=== PATIENT | male | born 1985 | race Caucasian/White ===

== ENCOUNTER 2021-02-01 16:22 | Emergency (ER) | payer SELFPAY ==
--- OUTSIDE RECORDS SUMMARY | 2021-02-01 16:26 | XMS REPORT | Continuity of Care Document ---
:1985 Author Organization [facility] t Address [address] [place] [address] Care Team Providers Name Role Phone Shai TOBAR Attending Clinician Unavailable Edwin Anton Attending Clinician Unavailable Edwin Anton Attending Clinician Unavailable JUANITA Attending Clinician Unavailable RAJI Attending Clinician Unavailable Edwin Anton Admitting Clinician Unavailable JUANITA Admitting Clinician Unavailable Problems This patient has no known problems. Allergies, Adverse Reactions, Alerts This patient has no known allergies or adverse reactions. Medications Ordered Filled Start Stop Current Ordering Indication Dosage Frequency Signature Comments Components Source Medication Medication Date Date Medication? Clinician (SIG) Name Name Amoxicillin Amoxicillin Yes 1tab BID C HI St 875 MG / 875 MG / [facility] - Clavulanate Clavulanate M emoria 125 MG Oral 125 MG Oral l Tablet Tablet (LUF/LI V/SA) Vital Signs Vital Name Observation Time Observation Value Comments Source Body Temperature 2017-01-16 00:14:[address] [facility] Respiratory Rate 2017-01-16 00:14:00 18 /min [facility] (LUF/ZOILA/SA) O2% BldC Oximetry 2017-01-16 00:14:00 97 % [facility] BP Systolic 2017-01-16 00:14:00 134 mm[Hg] [facility] (LUF/ZOILA/SA) BP Diastolic 2017-01-16 00:14:00 88 mm[Hg] [facility] (LUF/ZOILA/SA) Height 2017-01-16 00:14:[address] [facility] (LUF/ZOILA/SA) Weight Measured 2017-01-16 00:14:00 384.26 lbs AN ribeiro [facility] (LUF/ZOILA/SA) BMI (Body Mass Index) 2017-01-16 00:14:00 53.7 [facility] (LUF/ZOILA/SA) Procedures This patient has no known procedures. Encounters Start End Encounter Admission Attending Care Care Encounter Source Date/Time Date/Time Type Type Clinicians Facility Department ID 2020-05-16 2020-05-17 Emergency E AMADOU, [facility] [id number] [facility] 19:19:00 02:20:00 ELIZ smith [facility] 2019-12-01 2019-12-02 Emergency 1 Erickson Anton [facility] [id number] 21:47:00 01:13:00 Erickson Anton [facility] 2019-12-01 2019-12-01 Emergency [facility] [id number] 21:47:00 21:47:00 -[id number] [facility] 2017-01-16 2017-01-16 OTITIS KOSCIUK, [facility] [address] 00:03:00 00:42:00 [facility] [place] [address] ([address], V/SA) [place] [address] Results Test Description Test Time Test Comments Results Result Comments Source XR Chest 1 View 2019-12-01 Patient: Frontal 23:58:02 LUCIANA ARTEAGA Date/Time 0 23:30 CDTReason for ExamChest painReportLOCATION : [id number]: 34-year-old male presents with chest pain.COMMENT:The examination was obtained at the bedside at 10:29 p.m.The lungs are clear, and well-aerated. The cardiac silhouette, stuart, and mediastinum are unremarkable. The skeleton and soft tissues are unremarkable.Cardi ac monitoring leads are present.IMPRESSION :Unremarkable portable examination of the chest. Final Dictated by: MD Pablo, Chas RAMOSictated DT/TM: 12/01/2019 11:57 pmSigned by: MD Pablo, Chas LSigned (Electronic Signature): 12/01/2019 11:58 pm Comprehensive Metabolic Panel 2019-12-01 22:53:41 Test Item Value Reference Range Interpretation Comme nts Sodium Level (test code = Sodium Level) 141.0 mmol/L 136.0-145.0 Potassium Level (test code = Potassium Level) 4.00 mmol/L 3.50-5.1 0 Chloride Level (test code = Chloride Level) 107.0 mmol/L 98.0-107.0 CO2 (test code = CO2) 25 mmol/L 20-31 Anion Gap (test code = Anion Gap) 8.9 mmol/L 5.0-15.0 BUN (test code = BUN) 12 mg/dL 9-23 Creatinine Level (test code = Creatinine Level) 0.91 mg/dL 0.70-1 .30 BUN/Creat Ratio (test code = BUN/Creat Ratio) 13.2 ratio 10.0-20. 0 Glucose Level (test code = Glucose Level) 112 mg/dL 74-106 H Calcium Level (test code = Calcium Level) 8.9 mg/dL 8.3-10.6 Alk Phos (test code = Alk Phos) 83 U/L 46-116 Bilirubin Total (test code = Bilirubin Total) 0.6 mg/dL 0.2-1.1 Albumin Level (test code = Albumin Level) 4.3 g/dL 3.2-4.8 Protein Total (test code = Protein Total) 6.5 g/dL 5.7-8.2 ALT (test code = ALT) 62 U/L 10-49 H AST (test code = AST) 36 U/L <=34 H Globulin (test code = Globulin) 2.2 g/dL 2.3-3.5 L A/G Ratio (test code = A/G Ratio) 2.0 g/dL 0.8-2.0 Hemolysis (test code = Hemolysis) 0 g/dL 1-2 Icterus (test code = Icterus) 0 g/dL 1-2 Lipemia (test code = Lipemia) 0 g/dL 1-2 Creatine [id number] 22:53:41 Test Item Value Reference Range Interpretation Comments CK (test code = CK) 83 U/L 46-171 Comprehensive Metabolic [id number] 22:53:41 Test Item Value Reference Range Interpretation Comments Sodium Level (test 141.0 mmol/L 136.0-145.0 code = Sodium Level) Potassium Level 4.00 mmol/L 3.50-5.10 (test code = Potassium Level) Chloride Level (test 107.0 mmol/L 98.0-107.0 code = Chloride Level) CO2 (test code = 25 mmol/L 20-31 CO2) Anion Gap (test code 8.9 mmol/L 5.0-15.0 = Anion Gap) BUN (test code = 12 mg/dL 9-23 BUN) Creatinine Level 0.91 mg/dL 0.70-1.30 (test code = Creatinine Level) BUN/Creat Ratio 13.2 ratio 10.0-20.0 (test code = BUN/Creat Ratio) Glucose Level (test 112 mg/dL 74-106 H code = Glucose Level) Calcium Level (test 8.9 mg/dL 8.3-10.6 code = Calcium Level) Alk Phos (test code 83 U/L 46-116 = Alk Phos) Bilirubin Total 0.6 mg/dL 0.2-1.1 (test code = Bilirubin Total) Albumin Level (test 4.3 g/dL 3.2-4.8 code = Albumin Level) Protein Total (test 6.5 g/dL 5.7-8.2 code = Protein Total) ALT (test code = 62 U/L 10-49 H ALT) AST (test code = 36 U/L <=34 H AST) Globulin (test code 2.2 g/dL 2.3-3.5 L = Globulin) A/G Ratio (test code 2.0 g/dL 0.8-2.0 = A/G Ratio) eGFR AA (test code = >60 >=60 eGFR (e stimated eGFR AA) mL/min/1.73 m2 Glomerular Filtration Rate ) is an estimated va lue, calculated from the patient's serum creatinine usin g the MDRD equation. It is NOT the patient 's actual GFR. The eGFR provides a more clinically usef ul measure of kidn ey disease than se rum creatinine alone.This calculation giacomo es sex and race in to account, if the information is provided. If th e race is not provided, and t he patient is -Veronica n, multiply by 1.2 12. If sex is not provided, and t he patient is fema le, multiply by 0.7 42. Results for pat ients <18 years of ag e have not been validated by e MDRD study and should be interpreted wit h caution. eGFR R esult Interpretation: eGFR > or = 60 is in the Normal RangeeGF R < 60 may mean kid franchesca diseaseeGFR < 1 5 may mean kidney failure Rang es recommended by the National Kidney Foundation, http://nkdep.ni h.gov Hemolysis (test code 0 g/dL 1-2 = Hemolysis) Icterus (test code = 0 g/dL 1-2 Icterus) Lipemia (test code = 0 g/dL 1-2 Lipemia) Creatine Kinase MB [id number] 22:53:41 Test Item Value Reference Range Interpretation Comments CKMB (test code = CKMB) 1.19 ng/mL 0.00-5.00 CKMB % (test code = CKMB %) 1.4 % N Troponin [id number] 22:53:41 Test Item Value Reference Range Interpretation Comments Troponin-I (test 4 pg/mL <=45 The 99th pe rcentile URL for code = Troponin-I) the assay is <45 pg/ml. A rise and fall i n Troponin I with at least o ne value above the 99th percentile with clinical e vidence of myocardial isch emia would support a diagn osis of AMI. A delta of at l east 20% is recommended to assess acute changes in resu lts above the 99th percen tile in serial measurem ents. Serial cardiac troponi n measurements ar e recommended at 0, 3, 6 hours. Comprehensive Metabolic [id number] 22:53:41 Test Item Value Reference Range Interpretation Comments Sodium Level (test 141.0 mmol/L 136.0-145.0 code = Sodium Level) Potassium Level 4.00 mmol/L 3.50-5.10 (test code = Potassium Level) Chloride Level (test 107.0 mmol/L 98.0-107.0 code = Chloride Level) CO2 (test code = 25 mmol/L 20-31 CO2) Anion Gap (test code 8.9 mmol/L 5.0-15.0 = Anion Gap) BUN (test code = 12 mg/dL 9-23 BUN) Creatinine Level 0.91 mg/dL 0.70-1.30 (test code = Creatinine Level) BUN/Creat Ratio 13.2 ratio 10.0-20.0 (test code = BUN/Creat Ratio) Glucose Level (test 112 mg/dL 74-106 H code = Glucose Level) Calcium Level (test 8.9 mg/dL 8.3-10.6 code = Calcium Level) Alk Phos (test code 83 U/L 46-116 = Alk Phos) Bilirubin Total 0.6 mg/dL 0.2-1.1 (test code = Bilirubin Total) Albumin Level (test 4.3 g/dL 3.2-4.8 code = Albumin Level) Protein Total (test 6.5 g/dL 5.7-8.2 code = Protein Total) ALT (test code = 62 U/L 10-49 H ALT) AST (test code = 36 U/L <=34 H AST) Globulin (test code 2.2 g/dL 2.3-3.5 L = Globulin) A/G Ratio (test code 2.0 g/dL 0.8-2.0 = A/G Ratio) eGFR AA (test code = >60 >=60 eGFR (e stimated eGFR AA) mL/min/1.73 m2 Glomerular Filtration Rate ) is an estimated va lue, calculated from the patient's serum creatinine usin g the MDRD equation. It is NOT the patient 's actual GFR. The eGFR provides a more clinically usef ul measure of kidn ey disease than se rum creatinine alone.This calculation giacomo es sex and race in to account, if the information is provided. If th e race is not provided, and t he patient is -Veronica n, multiply by 1.2 12. If sex is not provided, and t he patient is fema le, multiply by 0.7 42. Results for pat ients <18 years of ag e have not been validated by th e MDRD study and should be interpreted wit h caution. eGFR R esult Interpretation: eGFR > or = 60 is in the Normal RangeeGF R < 60 may mean kid franchesca diseaseeGFR < 1 5 may mean kidney failure Rang es recommended by the National Kidney Foundation, http://nkdep.ni h.gov eGFR Non-AA (test >60.00 >=60.00 eGFR (nati mated code = eGFR Non-AA) mL/min/1.73 m2 Glomer ular Filtration Rate ) is an estimated va lue, calculated from the patient's serum creatinine usin g the MDRD equation. It is NOT the patient 's actual GFR. The eGFR provides a more clinically usef ul measure of kidn ey disease than se rum creatinine alone.This calculation giacomo es sex and race in to account, if the information is provided. If th e race is not provided, and t he patient is -Veronica n, multiply by 1.2 12. If sex is not provided, and t he patient is fema le, multiply by 0.7 42. Results for pat ients <18 years of ag e have not been validated by th e MDRD study and should be interpreted wit h caution. eGFR R esult Interpretation: eGFR > or = 60 is in the Normal RangeeGF R < 60 may mean kid franchesca diseaseeGFR < 1 5 may mean kidney failure Rang es recommended by the National Kidney Foundation, http://nkdep.ni h.gov Hemolysis (test code 0 g/dL 1-2 = Hemolysis) Icterus (test code = 0 g/dL 1-2 Icterus) Lipemia (test code = 0 g/dL 1-2 Lipemia) Complete Blood Count with [id number] 22:44:45 Test Item Value Reference Range Interpretation Comments WBC (test code = WBC) 11.4 x10 4.4-10.5 H RBC (test code = RBC) 4.55 x10 4.10-5.70 Hgb (test code = Hgb) 14.7 g/dL 13.4-17.4 Hct (test code = Hct) 41.4 % 38.7-52.0 MCV (test code = MCV) 91.00 fL 80.00-100.00 MCHC (test code = 35.50 g/dL 32.00-37.50 MCHC) RDW CV (test code = 13.0 % 11.5-14.5 RDW CV) MCH (test code = MCH) 32.3 pg 27.0-32.5 Platelets (test code = 309.0 x10 140.0-440.0 Platelets) MPV (test code = MPV) 10.7 fL N Slide Review (test Auto Auto Result cr eated by code = Slide Review) GL_SJM_ SLIDE_REV_AUTO nRBC (test code = 0 N nRBC) NRBC Abs (test code = 0.00 x10 N NRBC Abs) Automated [id number] 22:44:45 Test Item Value Reference Range Interpretation Comments Neutro Auto (test code = Neutro 57.7 % 36.0-70.0 Auto) Lymph Auto (test code = Lymph Auto) 28.9 % 12.0-44.0 Phelps Auto (test code = Phelps Auto) 9.3 % 0.0-11.0 Eos, Auto (test code = Eos, Auto) 3.1 % 0.0-7.0 Basophil Auto (test code = Basophil 0.7 % 0.0-2.0 Auto) Neutro Absolute (test code = Neutro 6.6 x10 1.6-7.4 Absolute) Lymph Absolute (test code = Lymph 3.31 x10 .50-4.60 Absolute) Phelps Absolute (test code = Phelps 1.06 x10 .00-1.20 Absolute) Eos Absolute (test code = Eos 0.35 x10 0.00-0.74 Absolute) Baso Absolute (test code = Baso 0.08 x10 0.00-0.21 Absolute) IG [id number] 22:44:45 Test Item Value Reference Range Interpretation Comments IG (test code = IG) 0.3 % 0.0-5.0 IG Abs (test code = IG Abs) 0 x10 N XR KNEE 1-2 [id number] 06:43:55Procedure: XR KNEE 1-2 VWSOrder Date: 11/22/2018 7:08 PMOrdering Provider: ALONSO TOBAR .Clinical Indication: [id number]: Pain in left kneeComparison: NoneFindings:No fracture, focal osseous destruction, or malalignment. Joint spaces arepreserved. Soft tissues are unremarkable.IMPRESSION:No acute osseous abnormality.This final report was electronically signed by Dr Blayne Ko MD 11/23/20186:37 AMDictated By: SHERRI KOKDate: 11/23/2018 06:37
[2021-02-01 18:08] LABS: Absolute Lymphocytes (CBC) 2.4 K/uL (0.7-4.9); Basophils % 0.4 % (0-1.3); Hematocrit 47.6 % (39.6-49.0); Lymphocytes % 23.4 % (15.3-44.8); RBC Red Blood Cell Count 5.26 M/uL (4.33-5.43)
[2021-02-01 18:30] LABS: Albumin 3.9 g/dL (3.4-5.0); Bilirubin Direct 0.2 mg/dL (0-0.2); Bilirubin Total 0.6 mg/dL (0.2-1.0); Potassium 3.8 mmol/L (3.5-5.1); Protein, Total 8.1 g/dL (6.4-8.2)
[2021-02-01] MEDS ORDERED: FAMOTIDINE 20 MG/2 ML VIAL IV ONE (19:12)
[2021-02-01] MEDS ORDERED: MORPHINE 2 MG/ML SYR ONE ×2 (19:12→22:20)
[2021-02-01] MEDS ORDERED: ONDANSETRON 4 MG/2 ML VIAL ONE (19:12)
[2021-02-01] MEDS ORDERED: NA CHLORIDE 0.9% 1,000 ML ONE (19:13)
--- NOTE | 2021-02-01 22:03 | RAD REPORT ---
EXAM DESCRIPTION: CT - Abdomen Pelvis Wo Contrast - 02/01/2021 9:38 pm CLINICAL HISTORY: ABD PAIN COMPARISON: <Comparisons> TECHNIQUE: Axial [address] imaging of the abdomen and pelvis was performed without IV contrast. No IV contrast was given because of allergy, abnormal renal function, patient refusal or physician re quest. No oral contrast administered. All CT scans are performed using dose optimization technique as appropriate and may include automated exposure control or mA/KV adjustment according to patient size. FINDINGS: No suspicious findings in the lung bases. The liver, spleen and pancreas show no suspicious findings on non-contrast imaging. Liver attenuation is borderline to minimally fatty infiltrated. Gallbladder and biliary tree are also without suspicio us finding. Gallstones can be occult on CT imaging. No hydronephrosis or suspicious renal mass. No significant adrenal finding. Isodense renal masses an d pyelonephritis cannot be excluded in the absence of IV contrast. Urinary bladder is fully contracte d limiting assessment. No dilated bowel loops or bowel wall thickening. Appendectomy clips seen at the tip cecum. No free ai r, free fluid or inflammatory stranding. No hernia, mass or bulky lymphadenopathy. No suspicious bony findings. IMPRESSION: Non-contrast enhanced CT abdomen and pelvis imaging show no acute or emergent finding. Full assessment is limited is the absence of IV contrast.
[2021-02-01 22:31] LABS: Urine Blood Negative (Negative); Urine Glucose Negative (Negative); Urine Protein 2+ (Negative); Urine Specific Gravity >=1.030 (1.005-1.030); Urine pH 5.5 (5.0-7.0)
--- NOTE | 2021-02-01 23:18 | EDPHYS ---
Physician Documentation [facility] Name: Eliot Avendaño Age: 35 yrs Sex: Male : 1985 Arrival Date: 02/01/2021 Time: 16:34 Bed 8 Private MD: ED Physician Richa Kunz HPI: 02/01 18:00 This 35 yrs old Male presents to ER via Ambulatory with complaints of Nausea, Diarrhea, cp Vomiting. 18:00 The patient presents to the emergency department with vomiting, that is intermittent, cp described as bilious, diarrhea, that is continuous, abdominal pain, of the mid abdomen, described as achy. 18:00 Onset: The symptoms/episode began/occurred 1 week(s) ago. Possible causes: bad food cp exposure. 18:00 Associated signs and symptoms: Pertinent positives: abdominal pain, diarrhea, vomiting, cp Pertinent negatives: constipation, dysuria, fever. Severity of symptoms: in the emergency department the symptoms are unchanged. Historical: - Allergies: 17:16 iodine-shrimp; iw - Home Meds: 17:16 None [Active]; iw - PMHx: 17:16 None; iw - PSHx: 17:16 Appendectomy; ankle; knee; bladder; iw - Immunization history:: Client reports having NOT received the Covid vaccine. - Social history:: Smoking status: . ROS: 18:05 Constitutional: Negative for body aches, chills, fever, poor PO intake. cp 18:05 Eyes: Negative for injury, pain, redness, and discharge. cp 18:05 ENT: Negative for ear pain, sore throat, difficulty swallowing, difficulty handling secretions. 18:05 Cardiovascular: Negative for chest pain, edema, palpitations. 18:05 Respiratory: Negative for cough, shortness of breath, wheezing. 18:05 Abdomen/GI: Positive for abdominal pain, nausea, vomiting, and diarrhea, Negative for constipation, hematemesis, black/tarry stool. 18:05 Back: Negative for radiated pain. 18:05 : Negative for urinary symptoms, testicular pain 18:05 Neuro: Negative for altered mental status, headache, weakness. 18:05 All other systems are negative. Exam: 18:10 Constitutional: The patient appears in no acute distress, alert, awake, non-toxic, well cp developed, well nourished, obese. 18:10 Head/Face: Normocephalic, atraumatic. cp 18:10 Eyes: Periorbital structures: appear normal, Conjunctiva: normal, no exudate, no injection, Sclera: no appreciated abnormality, Lids and lashes: appear normal, bilaterally. 18:10 ENT: External ear(s): are unremarkable, Nose: is normal, Mouth: Lips: moist, Oral mucosa: moist, Posterior pharynx: Airway: no evidence of obstruction, patent. 18:10 Chest/axilla: Inspection: normal, Palpation: is normal, no crepitus, no tenderness. 18:10 Cardiovascular: Rate: normal, Rhythm: regular. 18:10 Respiratory: the patient does not display signs of respiratory distress, Respirations: normal, no use of accessory muscles, no retractions, labored breathing, is not present, Breath sounds: are clear throughout, no decreased breath sounds. 18:10 Abdomen/GI: Inspection: obese Bowel sounds: active, all quadrants, Palpation: soft, in all quadrants, mild abdominal tenderness, in all quadrants, rebound tenderness, is not appreciated, involuntary guarding, is not appreciated. 18:10 Back: pain, is absent, ROM is normal. 18:10 Neuro: Orientation: to person, place \T\ time. Mentation: is normal, Motor: moves all fours, strength is normal, Sensation: is normal. Vital Signs: 17:17 BP 133 / 97; Pulse 79; Resp 16; Temp 98.2; Pulse Ox 97% on R/A; Weight 170.1 kg; Height iw 5 ft. 11 in. (180.34 cm); Pain 9/10; 19:31 BP 132 / 79; Pulse 72; Resp 20; Pulse Ox 98% on R/A; tw5 20:16 BP 143 / 86; Pulse 66; Resp 18; Pulse Ox 98% on R/A; Pain 6/10; tw5 20:18 Pain 6/10; tw5 22:22 BP 140 / 77; Pulse 78; Resp 18; Pulse Ox 100% on R/A; Pain 10/10; tw5 23:02 Pain 6/10; tw5 23:03 BP 129 / 75; tw5 12/13 00:11 BP 140 / 125; Pulse 80; Resp 18; Pulse Ox 100% on R/A; tw5 12/12 17:17 Body Mass Index 52.30 (170.10 kg, 180.34 cm) iw MDM: 02/01 18:48 Patient medically screened. 19:00 Differential diagnosis: gastritis, cholecystitis, appendicitis, diverticulitis, viral cp gastroenteritis, gastroenteritis. 23:15 Data reviewed: vital signs, nurses notes, lab test result(s), radiologic studies, CT cp scan. 23:15 Counseling: I had a detailed discussion with the patient and/or guardian regarding: the cp historical points, exam findings, and any diagnostic results supporting the discharge/admit diagnosis, lab results, radiology results, the need for outpatient follow up, a reading specialist, to return to the emergency department if symptoms worsen or persist or if there are any questions or concerns that arise at home. Response to treatment: the patient's symptoms have mildly improved after treatment, and as a result, I will discharge patient. Special discussion: Based on the patient's Hx, exam, and Dx evaluation, there is no indication for emergent surgery or inpatient Tx. It is understood by the patient/guardian that if the Sx's persist or worsen they need to return immediately for re-evaluation. 02/01 17:07 Order name: Basic Metabolic Panel; Complete Time: 18:55 02/01 20:37 Interpretation: Normal except: CL 110; CO2 19; GLUC 111; GFR 86. 02/01 17:07 Order name: CBC with Diff; Complete Time: 18:55 02/01 20:37 Interpretation: Normal except: MN% 12.4. 02/01 17:07 Order name: Hepatic Function; Complete Time: 18:55 02/01 20:37 Interpretation: Normal except: AST 38; GLOB 4.2; A/G 0.9. 02/01 17:07 Order name: Lipase; Complete Time: 18:55 02/01 18:59 Order name: Rotavirus Antigen 02/01 18:59 Order name: Stool Culture 02/01 18:59 Order name: CDIFF 02/01 19:00 Order name: Ova and Parasites [facility] 02/01 21:15 Order name: Abdomen ; Complete Time: 22:34 [facility] 02/01 22:31 Order name: Urine Dipstick-Ancillary EDMD 02/01 17:07 Order name: IV Saline Lock; Complete Time: 17:44 02/01 17:07 Order name: Labs collected and sent; Complete Time: 17:44 iw 02/01 18:59 Order name: Urine Dipstick-Ancillary (obtain specimen); Complete Time: 22:34 cp 02/01 22:34 Order name: PO challenge; Complete Time: 23:02 cp Administered Medications: 19:35 Drug: NS 0.9% 1000 ml Route: IV; Rate: 1 bolus; Site: right hand; tw5 19:36 Drug: Pepcid (famotidine) 20 mg Route: IVP; Site: right wrist; tw5 20:18 Follow up: Response: No adverse reaction tw5 19:37 Drug: Zofran (Ondansetron) 4 mg Route: IVP; Site: right wrist; tw5 20:18 Follow up: Response: No adverse reaction tw5 19:38 Drug: morphine 2 mg Route: IVP; Site: right wrist; tw5 20:18 Follow up: Pain 6/10 Adult; Response: No adverse reaction; Pain is unchanged, physician tw5 notified; RASS: Alert and Calm (0) 22:25 Drug: morphine 2 mg Route: IVP; Site: right wrist; tw5 23:02 Follow up: Pain 6/10 Adult; Response: No adverse reaction; RASS: Alert and Calm (0) tw5 02/02 00:11 Drug: Cipro (ciprofloxacin) 500 mg Route: PO; tw5 Disposition Summary: 02/01/21 23:17 Discharge Ordered Location: Home cp Problem: new cp Symptoms: have improved cp Condition: Stable cp Diagnosis - Diarrhea, unspecified cp - Nausea with vomiting, unspecified cp Followup: cp - With: Lamont Aleman MD - When: 1 - 2 days - Reason: Recheck today's complaints Discharge Instructions: - Discharge Summary Sheet cp - Food Choices to Help Relieve Diarrhea, Adult cp - Diarrhea, Adult cp - [place] Diet cp - Nausea and Vomiting, Adult cp Forms: - Medication Reconciliation Form cp - Thank You Letter cp - Antibiotic Education cp - Prescription Opioid Use cp Prescriptions: - Zofran 4 mg Oral Tablet - take 1 tablet by ORAL route every 12 hours As needed; 20 tablet; Refills: 0, cp Product Selection Permitted - Cipro 500 mg Oral Tablet - take 1 tablet by ORAL route every 12 hours for 7 days; 14 tablet; Refills: 0, cp Product Selection Permitted - dicyclomine 20 mg Oral Tablet - take 1 tablet by ORAL route 4 times per day; 30 tablet; Refills: 0, Product cp Selection Permitted Signatures: Dispatcher [employer] Sandhya Aguirre RN RN iw Nicolas Skinner PA PA cp Wood, Tiffany tw5 Corrections: (The following items were deleted from the chart) 02/01 19:08 19:00 Ova and Parasites+MR.LAB.BRZ ordered. EDMS EDMS 21:15 18:57 Abdomen Pelvis W Con+CT.RAD.BRZ ordered. EDMS EDMS
--- NOTE | 2021-02-01 23:18 | ER ---
Nurse's Notes [facility] Name: Eliot Avendaño Age: 35 yrs Sex: Male : 1985 Arrival Date: 02/01/2021 Time: 16:34 Bed 8 Private MD: Diagnosis: Diarrhea, unspecified;Nausea with vomiting, unspecified Presentation: 02/01 17:07 Chief complaint: Patient states: abd pain, n/v/d X 1 week, has been having diarrhea iw every 20 minutes today, thought he had food poisoning but symptoms have persisted for 1 week now. Coronavirus screen: Client presents with at least one sign or symptom that may indicate coronavirus-19. Ebola Screen: Patient negative for fever greater than or equal to 101.5 degrees Fahrenheit, and additional compatible Ebola Virus Disease symptoms Patient denies exposure to infectious person. Patient denies travel to an Ebola-affected area in the 21 days before illness onset. No symptoms or risks identified at this time. Initial Sepsis Screen: Does the patient meet any 2 criteria? No. Patient's initial sepsis screen is negative. Does the patient have a suspected source of infection? No. Patient's initial sepsis screen is negative. Risk Assessment: Do you want to hurt yourself or someone else? Patient reports no desire to harm self or others. Onset of symptoms was January 25, 2021. 17:07 Method Of Arrival: Ambulatory iw 17:07 Acuity: CAIO 3 iw Historical: - Allergies: 17:16 iodine-shrimp; iw - Home Meds: 17:16 None [Active]; iw - PMHx: 17:16 None; iw - PSHx: 17:16 Appendectomy; ankle; knee; bladder; iw - Immunization history:: Client reports having NOT received the Covid vaccine. - Social history:: Smoking status: . Screenin:31 Abuse screen: Denies threats or abuse. Denies injuries from another. Nutritional tw5 screening: No deficits noted. Nutritional screening: Has had N/V for 3 or more days. Tuberculosis screening: Never had TB. Fall Risk No fall in past 12 months (0 pts). IV access (20 points). Gait- Weak (10 pts.). Assessment: 19:31 General: Appears obese, Behavior is calm, cooperative, appropriate for age. Pain: tw5 Complains of pain in right lower quadrant and left lower quadrant Pain currently is 6 out of 10 on a pain scale. at worst was 10 out of 10 on a pain scale. Quality of pain is described as crampy, Pain began been occurring for the past week. GI: Abdomen is obese, Stools are reported to be diarrhea. Last BM at 19:32. Bowel sounds present X 4 quads. Reports lower abdominal pain, upper abdominal pain, diarrhea, nausea, vomiting. 20:16 General: Reports " I am feeling really dizzy". tw5 22:22 General: Reports " I am hungry as hell, nauseous, dizzy, hurting.". tw5 23:03 GI: Stools are reported to be diarrhea. Last BM at 23:03. Reports diarrhea. tw5 Vital Signs: 17:17 BP 133 / 97; Pulse 79; Resp 16; Temp 98.2; Pulse Ox 97% on R/A; Weight 170.1 kg; Height iw 5 ft. 11 in. (180.34 cm); Pain 9/10; 19:31 BP 132 / 79; Pulse 72; Resp 20; Pulse Ox 98% on R/A; tw5 20:16 BP 143 / 86; Pulse 66; Resp 18; Pulse Ox 98% on R/A; Pain 6/10; tw5 20:18 Pain 6/10; tw5 22:22 BP 140 / 77; Pulse 78; Resp 18; Pulse Ox 100% on R/A; Pain 10/10; tw5 23:02 Pain 6/10; tw5 23:03 BP 129 / 75; tw5 12/13 00:11 BP 140 / 125; Pulse 80; Resp 18; Pulse Ox 100% on R/A; tw5 12/12 17:17 Body Mass Index 52.30 (170.10 kg, 180.34 cm) iw ED Course: 1212 16:34 Patient arrived in ED. am2 17:08 Triage completed. iw 17:16 Arm band placed on. iw 17:23 Inserted saline lock: 20 gauge in right wrist, using aseptic technique. Blood collected.iw 18:47 Nicolas Skinner PA is PHCP. cp 18:47 Richa Kunz MD is Attending Physician. cp 19:07 Leida Rowe is Primary Nurse. tw5 19:31 Patient has correct armband on for positive identification. Placed in gown. Bed in low tw5 position. Call light in reach. Side rails up X 1. Pulse ox on. NIBP on. Door closed. Noise minimized. Moved to private room. Warm blanket given. Verbal reassurance given. 19:31 stool sample. tw5 19:38 Rotavirus Antigen Sent. tw5 19:38 Stool Culture Sent. tw5 19:38 CDIFF Sent. tw5 19:38 Ova and Parasites Sent. tw5 20:18 CDIFF Sent. tw5 20:18 Ova and Parasites Sent. tw5 20:18 Rotavirus Antigen Sent. tw5 20:18 Stool Culture Sent. tw5 21:38 Abdomen In Process Unspecified. EDMS 23:17 Lamont Aleman MD is Referral Physician. cp 23:58 Urine Dipstick-Ancillary Sent. tw5 02/02 00:11 No provider procedures requiring assistance completed. IV discontinued, intact, tw5 bleeding controlled, No redness/swelling at site. Pressure dressing applied. Administered Medications: 02/01 19:35 Drug: NS 0.9% 1000 ml Route: IV; Rate: 1 bolus; Site: right hand; tw5 19:36 Drug: Pepcid (famotidine) 20 mg Route: IVP; Site: right wrist; tw5 20:18 Follow up: Response: No adverse reaction tw5 19:37 Drug: Zofran (Ondansetron) 4 mg Route: IVP; Site: right wrist; tw5 20:18 Follow up: Response: No adverse reaction tw5 19:38 Drug: morphine 2 mg Route: IVP; Site: right wrist; tw5 20:18 Follow up: Pain 6/10 Adult; Response: No adverse reaction; Pain is unchanged, physician tw5 notified; RASS: Alert and Calm (0) 22:25 Drug: morphine 2 mg Route: IVP; Site: right wrist; tw5 23:02 Follow up: Pain 6/10 Adult; Response: No adverse reaction; RASS: Alert and Calm (0) tw5 02/02 00:11 Drug: Cipro (ciprofloxacin) 500 mg Route: PO; tw5 Outcome: 02/01 23:17 Discharge ordered by . scottie 02/02 00:11 Patient left the ED. tw Signatures: Dispatcher [employer] EDMS Sandhya Alonzo RN RN iw Page, NicolasPAYTON frank cp, Amanda am2 Leida Rowe tw5
[2021-02-01] MEDS ORDERED: CIPROFLOXACIN HCL 500 MG TAB ONE (23:59)
[2021-02-02 00:18] VITALS: TEMP 98.2
[2021-02-02 00:22] VITALS: O2SAT 100
[2021-02-02 00:25] VITALS: BP 140/125
[2021-02-03 12:35] LABS: C.diff Antigen/Toxin Ag neg : Tox neg (NEG : NEG)
== END 2021-02-02 00:11 | disposition home or self-care (01) ==
LOC: ER 16:22
DX: R19.7 Diarrhea, unspecified (principal); Z91.013 Allergy to seafood; Z91.048 Other nonmedicinal substance allergy status
CPT/HCPCS: 36415; 74176; 80048; 80076; 81003; 83690; 85025; 87045; 87046; 87177; 87209; 87324; 87425; 87449; 96374; 96375; 99284; J2270; J2405; J7030

== ENCOUNTER 2022-05-11 09:45 | Emergency (ER) | payer BC ==
--- OUTSIDE RECORDS SUMMARY | 2022-05-11 09:51 | XMS REPORT | Continuity of Care Document ---
:1985 Author Organization [facility] t Address [address] [place] [address] Care Team Providers Name Role Phone ELIZ TOBAR Attending Clinician Unavailable Erickson Anton Attending Clinician Unavailable Erickson Anton Attending Clinician Unavailable BRENDON GRANT Attending Clinician Unavailable RITIKA ALEGRIA Attending Clinician Unavailable Erickson Anton Admitting Clinician Unavailable BRENDON GRANT Admitting Clinician Unavailable Problems This patient has no known problems. Allergies, Adverse Reactions, Alerts Allergy Allergy Status Severity Reaction(s) Onset Inactive Treating Comm ents Source Name Type Date Date Clinician No Known DA Active Unknown 2016-[address] [facility] 03-18 [facility]: Mem[facility] 00 l (LUF/LI V/SA) iodine Drug Active [facility] iodine Drug Active [facility] iodine Drug Active [facility] iodine Drug Active [facility] Medications Ordered Filled Start Stop Current Ordering Indication Dosage Frequency Signature Comments Components Source Medication Medication Date Date Medication? Clinician (SIG) Name Name Amoxicillin Amoxicillin Yes 1tab BID C [facility] 875 MG / 875 MG / [facility] Clavulanate Clavulanate M emoria 125 MG Oral 125 MG Oral l Tablet Tablet (LUF/LI V/SA) Vital Signs Vital Name Observation Time Observation Value Comments Source Height/Length 2021-03-10 12:49:24 165 cm Measured Height/Length 2021-03-10 12:49:20 165 cm Measured Height/Length 2021-03-10 12:49:17 165 cm Measured Height/Length 2021-03-10 12:49:16 165 cm Measured Height/Length 2019-12-01 21:57:43 Measured Weight 2018-11-22 18:43:00 145 KG Body Temperature 2017-01-16 00:14:00 97.2 F [facility] (LUF/ZOILA/SA) Respiratory Rate 2017-01-16 00:14:00 18 /min [facility] (LUF/ZOILA/SA) O2% BldC Oximetry 2017-01-16 00:14:00 97 % [facility] (LUF/ZOILA/SA) BP Systolic 2017-01-16 00:14:00 134 mm[Hg] [facility] (LUF/ZOILA/SA) BP Diastolic 2017-01-16 00:14:00 88 mm[Hg] [facility] (LUF/ZOILA/SA) Height 2017-01-16 00:14:00 71 in [facility] (LUF/ZOILA/SA) Weight Measured 2017-01-16 00:14:00 384.26 lbs [facility] (LUF/ZOILA/SA) BMI (Body Mass Index) 2017-01-16 00:14:00 53.7 [facility] (LUF/ZOLIA/SA) Procedures This patient has no known procedures. Encounters Start End Encounter Admission Attending Care Care Encounter Source Date/Time Date/Time Type Type Clinicians Facility Department ID 2020-05-16 2020-05-17 Emergency E AMADOU, [id number] 19:19:00 02:20:[address] [facility] 2019-12-01 2019-12-02 Emergency 1 Erickson Anton [facility] [place] [id number] 21:47:00 01:13:00 Erickson Anton [facility] 2019-12-01 2019-12-01 Emergency [facility] [id number] 21:47:00 21:47:00 -[id number] Roberto [facility] 2017-01-16 2017-01-16 TRANG ALEGRIA [facility] [id number] 00:03:00 00:42:00 MEDIA RITIKA BOISE Adilia UNSPECIFKaren MARINELLI D RIGHT [address] (LUF/[address], V/SA) [place] [id number] Results Test Description Test Time Test Comments Results Result Comments Source XR Chest 1 View 2019-12-01 Patient: Jack ARTEAGA 23:58:02 LUCIANA MCNEIL Date/Time 0 23:30 CDTReason for ExamChest painReportLOCATION : [id number]: 34-year-old male presents with chest pain.COMMENT:The examination was obtained at the bedside at 10:29 p.m.The lungs are clear, and well-aerated. The cardiac silhouette, stuart, and mediastinum are unremarkable. The skeleton and soft tissues are unremarkable.Cardi ac monitoring leads are present.IMPRESSION :Unremarkable portable examination of the chest. Final Dictated by: MD Shah Robert LDictated DT/TM: 12/01/2019 11:57 pmSigned by: MD Shah Robert LSigned (Electronic Signature): 12/01/2019 11:58 pm Comprehensive [...] code = Lipemia) 0 g/dL 1-2 Creatine [id number] 22:53:41 Test Item Value Reference Range Interpretation Comments CK (test code = CK) 83 U/L 46-171 Comprehensive Metabolic [id number] 22:53:41 Test Item Value Reference Range Interpretation [...] 0 g/dL 1-2 Lipemia) Creatine Kinase MB [id number] 22:53:41 Test Item Value Reference Range Interpretation Comments CKMB (test code = CKMB) 1.19 ng/mL 0.00-5.00 CKMB % (test code = CKMB %) 1.4 % N Troponin [id number] 22:53:41 Test Item Value Reference Range Interpretation [...] at 0, 3, 6 hours. Comprehensive Metabolic [id number] 22:53:41 Test Item Value Reference Range Interpretation [...] ag e have not been validated by [facility] MDRD study and should be interpreted wit [...] ag e have not been validated by [facility] MDRD study and should be interpreted wit [...] g/dL 1-2 Lipemia) Complete Blood Count with [id number] 22:44:45 Test Item Value Reference Range Interpretation [...] = 0.00 x10 N NRBC Abs) Automated [id number] 22:44:45 Test Item Value Reference Range Interpretation Comments Neutro Auto (test code = Neutro 57.7 % 36.0-70.0 Auto) Lymph Auto (test code = Lymph Auto) 28.9 % 12.0-44.0 [place] Auto (test code = [place] Auto) 9.3 % 0.0-11.0 Eos, Auto (test code = Eos, Auto) 3.1 % 0.0-7.0 Basophil Auto (test code = Basophil 0.7 % 0.0-2.0 Auto) Neutro Absolute (test code = Neutro 6.6 x10 1.6-7.4 Absolute) Lymph Absolute (test code = Lymph 3.31 x10 .50-4.60 Absolute) [place] Absolute (test code = [place] 1.06 x10 .00-1.20 Absolute) Eos Absolute (test code = Eos 0.35 x10 0.00-0.74 Absolute) Baso Absolute (test code = Baso 0.08 x10 0.00-0.21 Absolute) IG [id number] 22:44:45 Test Item Value Reference Range Interpretation Comments IG (test code = IG) 0.3 % 0.0-5.0 IG Abs (test code = IG Abs) 0 x10 N XR KNEE 1-2 [id number] 06:43:55Procedure: XR KNEE 1-2 VWSOrder Date: 11/22/2018 7:08 PMOrdering Provider: ALONSO TOBAR .Clinical Indication: [id number]: Pain in left kneeComparison: NoneFindings:No fracture, focal osseous destruction, or malalignment. Joint spaces arepreserved. Soft tissues are unremarkable.IMPRESSION:No acute osseous abnormality.This final report was electronically signed by Dr Blayne Ko MD 11/23/20186:37 AMDictated By: SHERRI KOKDate: 11/23/2018 06:37[facility]
[2022-05-11] MEDS ORDERED: ONDANSETRON 4 MG (ODT) TAB ONE (11:09)
[2022-05-11 11:14] LABS: Absolute Lymphocytes (CBC) 1.6 K/uL (0.7-4.9); Hematocrit 45.2 % (39.6-49.0); Lymphocytes % 12.1 % (15.3-44.8); MCV 91.2 fL (80-100); MPV 8.8 fL (7.6-11.3); RBC Red Blood Cell Count 4.96 M/uL (4.33-5.43)
--- NOTE | 2022-05-11 11:22 | RAD REPORT ---
EXAM DESCRIPTION: US - Abdomen Exam Limited - 05/11/2022 10:55 am CLINICAL HISTORY: ABD PAIN COMPARISON: Abdomen Pelvis Wo Contrast dated 02/01/2021 TECHNIQUE: Sonographic grayscale and color flow images of the right upper quadrant were obtained. FINDINGS: The gallbladder demonstrates layering small echogenic foci near the neck, suggestive of sm all gallstones. No pericholecystic fluid or gallbladder wall thickening. The common bile duct is norm al measuring 6 mm. The liver demonstrates no findings of intrahepatic biliary dilatation. IMPRESSION: Small layering gallstones near the neck. No other acute findings.
--- NOTE | 2022-05-11 11:25 | RAD REPORT ---
EXAM DESCRIPTION: [facility] Pa And Lat (2 Views)05/11/2022 10:54 am CLINICAL HISTORY: pain on inspiration COMPARISON: CHEST PA AND LAT 2 VIEW dated 05/10/2011 TECHNIQUE: PA and lateral views of the chest. FINDINGS: The lungs are clear. No pneumothorax or effusion. The cardiomediastinal contours are unrem arkable. IMPRESSION: No acute cardiopulmonary process.
[2022-05-11 13:00] LABS: Bilirubin Total 1.8 mg/dL (0.2-1.0); Potassium 4.4 mEq/L (3.5-5.1)
[2022-05-11 13:01] LABS: Albumin 3.7 g/dL (3.4-5.0); Protein, Total 7.3 g/dL (6.4-8.2)
--- NOTE | 2022-05-11 13:36 | ER ---
Nurse's Notes [facility] Name: Eliot Avendaño Age: 37 yrs Sex: Male : 1985 Arrival Date: 05/11/2022 Time: 09:51 Bed 25 Private MD: Diagnosis: Biliary acute pancreatitis;Other cholelithiasis without obstruction Presentation: 05/11 10:21 Chief complaint: Patient states: Epigastric pain that radiates to the back with N/V vg1 that began last night, stated also pain with deep inhalation. Denies diarrhea. Coronavirus screen: Vaccine status: Patient reports being unvaccinated. Client denies travel out of the [place] in the last 14 days. Ebola Screen: Patient negative for fever greater than or equal to 101.5 degrees Fahrenheit, and additional compatible Ebola Virus Disease symptoms Patient denies exposure to infectious person. Patient denies travel to an Ebola-affected area in the 21 days before illness onset. Initial Sepsis Screen: Does the patient meet any 2 criteria? No. Patient's initial sepsis screen is negative. Does the patient have a suspected source of infection? No. Patient's initial sepsis screen is negative. Risk Assessment: Do you want to hurt yourself or someone else? Patient reports no desire to harm self or others. Onset of symptoms was May 10, 2022. 10:21 Method Of Arrival: Ambulatory vg1 10:21 Acuity: CAIO 3 vg1 Triage Assessment: 10:25 Pain: Complains of pain in epigastric area Pain radiates to back Pain currently is 8 vg1 out of 10 on a pain scale. Pain began 1 day ago. Neuro: Level of Consciousness is awake, alert, obeys commands, Oriented to person, place, time, situation. Respiratory: Reports pain with deep inhalation Airway is patent Respiratory effort is even, unlabored. GI: Abdomen is round non-distended, obese, Reports nausea, vomiting, Patient currently denies diarrhea. 17:13 General: Appears in no apparent distress. Behavior is calm, cooperative, appropriate tw5 for age. Historical: - Allergies: 10:25 iodine-shrimp; vg1 - Home Meds: 10:25 Lipo-C [Active]; semaglutide (weight loss) subcutaneous [Active]; vg1 - PMHx: 10:25 Asthma; vg1 - PSHx: 10:25 Ankle; Appendectomy; Bladder; knee; vg1 - Immunization history:: Client reports having NOT received the Covid vaccine. - Social history:: Smoking status: Patient denies any tobacco usage or history of. Screenin:23 [facility] ED Fall Risk Assessment (Adult) History of falling in the last 3 months, tw5 including since admission No falls in past 3 months (0 pts). Abuse screen: Denies threats or abuse. Denies injuries from another. Nutritional screening: No deficits noted. Tuberculosis screening: No symptoms or risk factors identified. Assessment: 12:20 General: Reports "I had abdominal pain when I woke up this morning. Actually it started tw5 last night, first I thought it was maybe gas. Then around 3 AM the pain got worse. I no longer have my appendix but I do have my galbladder". Neuro: Level of Consciousness is awake, alert, obeys commands, Oriented to person, place, time, situation. Respiratory: Airway is patent Trachea midline. GI: Bowel sounds. 12:23 Pain: Pain currently is 0 out of 10 on a pain scale. at worst was 10 out of 10 on a tw5 pain scale. Cardiovascular: Heart tones S1 S2. GI: Abdomen is tender to palpation in epigastric area. GI: 12:35 General: called inside lab for recollect. . tw5 15:20 Reassessment: Patient appears in no apparent distress at this time. No changes from tw5 previously documented assessment. Patient and/or family updated on plan of care and expected duration. Pain level reassessed. Patient is alert, oriented x 3, equal unlabored respirations, skin warm/dry/pink. 15:23 General: Parents at the bedside. Report called to Gisela PATTERSON . tw5 Vital Signs: 10:21 BP 130 / 97; Pulse 85; Resp 18; Temp 98(O); Pulse Ox 99% on R/A; Weight 167.83 kg (R); vg1 Height 5 ft. 11 in. ; Pain 8/10; 12:23 BP 104 / 56; Pulse 63; Resp 18; Pulse Ox 100% on R/A; Pain 0/10; tw5 15:22 BP 117 / 76; Pulse 65; Resp 18; Pulse Ox 100% on R/A; Pain 4/10; tw5 10:21 Body Mass Index 51.60 (167.83 kg, 180.34 cm) vg1 10:21 Pain Scale: Adult vg1 12:23 Pain Scale: Adult tw5 15:22 Pain Scale: Adult tw5 ED Course: 09:51 Patient arrived in ED. rg4 09:52 Alic[facility] Vazquez [facility]-C [facility] snw 09:52 Vishnu Fleming MD is Attending Physician. snw 10:25 Triage completed. vg1 10:25 Arm band placed on. vg1 10:53 Abdomen Limited US In Process Unspecified. EDMS 10:56 Chest Pa And Lat (2 Views) XRAY In Process Unspecified. EDMS 12:19 Leida Rowe is Primary Nurse. tw5 12:23 Patient has correct armband on for positive identification. Bed in low position. Call tw5 light in reach. Side rails up X 1. Pulse ox on. NIBP on. Door closed. Noise minimized. Moved to private room. 12:23 No provider procedures requiring assistance completed. IV is intact, with fluids tw5 infusing freely, with good blood return. 12:35 Lab(s) recollected, sent to lab. tw5 13:34 Richa Tello MD is Hospitalizing Provider. snw 17:13 Patient transferred, IV remains in place. tw5 Administered Medications: 11:05 Drug: Ondansetron PO 4 mg Route: PO; iw 12:36 Follow up: Response: No adverse reaction tw5 13:58 Drug: NS 0.9% IV 1000 ml Route: IV; Rate: 125 ml/hr; Site: left forearm; tw5 13:58 Drug: fentaNYL (PF) IVP 25 mcg Route: IVP; Site: left forearm; tw5 15:14 Drug: NS 0.9% IV 1000 ml Route: IV; Rate: 1 bolus; Site: right forearm; tw5 15:20 Drug: Piperacillin-Tazobactam IVPB 3.375 grams Route: IVPB; Infused Over: 60 mins; tw5 Site: right forearm; Medication: 12:23 VIS not applicable for this client. tw5 Outcome: 13:35 Decision to Hospitalize by Provider. snw 15:10 ER care complete, transfer ordered by . snw 17:12 Transferred to [facility]. tw5 17:12 Transferred Note: bedside given to EMS 17:12 Condition: stable 17:12 Discharge instructions given to patient, Instructed on the need for transfer. 17:13 Patient left the ED. tw5 Signatures: Dispatcher [employer] Alicia Cramer, DERREK [employer] TECHNICIAN-Lauraw Sandhya Alonzo, RN Corry Zayas Victoria RN RN osmin1 Leida Rowe tw5
--- NOTE | 2022-05-11 13:36 | EDPHYS ---
Physician Documentation [facility] Name: Eliot Avendaño Age: 37 yrs Sex: Male : 1985 Arrival Date: 05/11/2022 Time: 09:51 Bed 25 Private MD: ED Physician Vishnu Fleming HPI: 05/11 10:27 This 37 yrs old Male presents to ER via Ambulatory with complaints of Abdominal Pain. snw 10:27 The patient presents with abdominal pain in the epigastric area, in the upper abdomen. snw Onset: The symptoms/episode began/occurred last night. The symptoms radiate to back. Associated signs and symptoms: Pertinent positives: nausea and vomiting. The symptoms are described as sharp. Severity of pain: At its worst the pain was moderate severe. The patient has not experienced similar symptoms in the past. seeing Dr. Yee, wt loss program with 50# wt loss. Historical: - Allergies: 10:25 iodine-shrimp; vg1 - Home Meds: 10:25 Lipo-C [Active]; semaglutide (weight loss) subcutaneous [Active]; vg1 - PMHx: 10:25 Asthma; vg1 - PSHx: 10:25 Ankle; Appendectomy; Bladder; knee; vg1 - Immunization history:: Client reports having NOT received the Covid vaccine. - Social history:: Smoking status: Patient denies any tobacco usage or history of. ROS: 10:26 Constitutional: Negative for fever, chills, and weight loss, Eyes: Negative for injury, snw pain, redness, and discharge, ENT: Negative for injury, pain, and discharge, Neck: Negative for injury, pain, and swelling, Cardiovascular: Negative for chest pain, palpitations, and edema. 10:26 Back: Negative for injury and pain, : Negative for injury, bleeding, discharge, and swelling, MS/Extremity: Negative for injury and deformity, Skin: Negative for injury, rash, and discoloration, Neuro: Negative for headache, weakness, numbness, tingling, and seizure, Psych: Negative for depression, anxiety, suicide ideation, homicidal ideation, and hallucinations. 10:26 Respiratory: Positive for pain on inspiration. 10:26 Abdomen/GI: Positive for abdominal pain, nausea and vomiting. Exam: 10:25 Constitutional: This is a well developed, well nourished patient who is awake, alert, snw and in no acute distress. Head/Face: Normocephalic, atraumatic. Eyes: Pupils equal round and reactive to light, extra-ocular motions intact. Lids and lashes normal. Conjunctiva and sclera are non-icteric and not injected. Cornea within normal limits. Periorbital areas with no swelling, redness, or edema. ENT: Nares patent. No nasal discharge, no septal abnormalities noted. Tympanic membranes are normal and external auditory canals are clear. Oropharynx with no redness, swelling, or masses, exudates, or evidence of obstruction, uvula midline. Mucous membranes moist. Neck: Trachea midline, no thyromegaly or masses palpated, and no cervical lymphadenopathy. Supple, full range of motion without nuchal rigidity, or vertebral point tenderness. No Meningismus. Chest/axilla: Normal chest wall appearance and motion. Nontender with no deformity. No lesions are appreciated. Cardiovascular: Regular rate and rhythm with a normal S1 and S2. No gallops, murmurs, or rubs. Normal PMI, no JVD. No pulse deficits. Respiratory: Lungs have equal breath sounds bilaterally, clear to auscultation and percussion. No rales, rhonchi or wheezes noted. No increased work of breathing, no retractions or nasal flaring. Back: No spinal tenderness. No costovertebral tenderness. Full range of motion. Skin: Warm, dry with normal turgor. Normal color with no rashes, no lesions, and no evidence of cellulitis. MS/ Extremity: Pulses equal, no cyanosis. Neurovascular intact. Full, normal range of motion. Neuro: Awake and alert, GCS 15, oriented to person, place, time, and situation. Cranial nerves II-XII grossly intact. Motor strength 5/5 in all extremities. Sensory grossly intact. Cerebellar exam normal. Normal gait. Psych: Awake, alert, with orientation to person, place and time. Behavior, mood, and affect are within normal limits. 10:25 Abdomen/GI: Inspection: abdomen appears normal, Bowel sounds: normal, Palpation: moderate abdominal tenderness, in the epigastric area and right upper quadrant. Vital Signs: 10:21 BP 130 / 97; Pulse 85; Resp 18; Temp 98(O); Pulse Ox 99% on R/A; Weight 167.83 kg (R); vg1 Height 5 ft. 11 in. ; Pain 8/10; 12:23 BP 104 / 56; Pulse 63; Resp 18; Pulse Ox 100% on R/A; Pain 0/10; tw5 15:22 BP 117 / 76; Pulse 65; Resp 18; Pulse Ox 100% on R/A; Pain 4/10; tw5 10:21 Body Mass Index 51.60 (167.83 kg, 180.34 cm) vg1 10:21 Pain Scale: Adult vg1 12:23 Pain Scale: Adult tw5 15:22 Pain Scale: Adult tw5 MDM: 10:10 Patient medically screened. snw 13:30 Differential diagnosis: cholecystitis, Cholelithiasis, gastritis, non-specific abd snw pain, pancreatitis. Data reviewed: vital signs, nurses notes, lab test result(s), radiologic studies, CT scan. Counseling: I had a detailed discussion with the patient and/or guardian regarding: the historical points, exam findings, and any diagnostic results supporting the discharge/admit diagnosis, lab results, radiology results, the need for further work-up and treatment in the hospital. Special discussion:. 13:32 Consideration of Admission/Observation Patient was admitted/placed on observation. snw Response to treatment: the patient's symptoms have mildly improved after treatment. 13:32 Management of patient was discussed with the following: Hospitalist: To be admitted for snw cholelithiasis, pancreatitis. 14:33 ED course: Dr. Cortez chief contract officer for GI; however, he recommends transfer as pt needs snw ERCP. ALT, AST, and Tbili elevated.. 15:05 ED course: Discussed VS, work up with Dr. Martins at [facility]. He kindly snw accepts pt in transfer to [facility] and requests 1L NS bolus and increase in IVF to 200ml/hr. 05/11 10:24 Order name: CBC with Diff; Complete Time: 11: snw 05/11 10:24 Order name: CMP; Complete Time: 13:03 snw 05/11 10:24 Order name: Lipase; Complete Time: 13: snw 05/11 13:46 Order name: SARS RAPID; Complete Time: 14:20 iw 05/11 10:24 Order name: Abdomen Limited US; Complete Time: 11: snw 05/11 10:26 Order name: Chest Pa And Lat (2 Views) XRAY; Complete Time: 11:33 snw 05/11 10:24 Order name: IV Saline Lock; Complete Time: 11:05 snw 05/11 10:24 Order name: Labs collected and sent; Complete Time: 11:05 snw 05/11 11:22 Order name: Labs - recollect needed: please recollect chemistry ; Complete Time: 12:36 em1 05/11 15:04 Order name: Misc. Order: please increase IVF to 200ml/hr; Complete Time: 15:15 snw Administered Medications: 11:05 Drug: Ondansetron PO 4 mg Route: PO; iw 12:36 Follow up: Response: No adverse reaction tw5 13:58 Drug: NS 0.9% IV 1000 ml Route: IV; Rate: 125 ml/hr; Site: left forearm; tw5 13:58 Drug: fentaNYL (PF) IVP 25 mcg Route: IVP; Site: left forearm; tw5 15:14 Drug: NS 0.9% IV 1000 ml Route: IV; Rate: 1 bolus; Site: right forearm; tw5 15:20 Drug: Piperacillin-Tazobactam IVPB 3.375 grams Route: IVPB; Infused Over: 60 mins; tw5 Site: right forearm; Disposition: 17:48 Co-signature as Attending Physician, Vishnu Fleming MD I reviewed the patient's care rn provided by the Advanced Practice Provider and agree with the diagnosis and treatment plan. Disposition Summary: 05/11/22 15:10 Transfer Ordered Transfer Location: [facility] snw Reason: Higher level of care snw Condition: Stable(05/11/22 15:10) snw Problem: new(05/11/22 15:10) snw Symptoms: have improved(05/11/22 15:10) snw Accepting Physician: Dr. Martins(05/11/22 17:13) tw5 Diagnosis - Biliary acute pancreatitis snw - Other cholelithiasis without obstruction(05/11/22 15:10) snw Forms: - Medication Reconciliation Form snw - SBAR form snw Signatures: Dispatcher [employer] Alicia Cramer, CIERRA-C SHANK CUTTER-Csnw Sandhya Alonzo RN Vishnu Lake MD MD rn Martinez, Eric em1 Millicent Domínguez, YESENIA RN osmin1 Leida Rowe tw5 Corrections: (The following items were deleted from the chart) 11:21 11:18 Labs - recollect needed ordered. em1 em1 14:33 13:35 Inpatient Admission snw snw 14:33 13:35 Richa Tello snw snw 14:33 13:35 Telemetry/MedSurg (Inpatient) snw snw 14:33 13:35 Stable snw snw 14:33 13:35 new snw snw 14:33 13:35 have improved snw snw 14:33 13:35 Standard snw snw 14:33 13:35 snw snw 14:33 13:35 Acute pancreatitis snw snw 14:33 13:35 Other cholelithiasis without obstruction snw snw 14:42 13:30 Data reviewed: vital signs, nurses notes, lab test result(s), radiologic studies, snw CT scan, snw 17:13 15:10 Dr. Martins [facility] tw5
[2022-05-11] MEDS ORDERED: FENTANYL CITR 100 MCG/2 ML ONE (13:54)
[2022-05-11] MEDS ORDERED: NA CHLORIDE 0.9% 1,000 ML ONE ×2 (13:55→15:11)
[2022-05-11 14:18] LABS: SARS-CoV-2 Antigen Rapid Res Negative (Negative)
[2022-05-11] MEDS ORDERED: NA CHLORIDE 0.9% 100 ML ONE (15:11)
[2022-05-11] MEDS ORDERED: PIPERACIL/TAZO 3.375 GM VIAL IV ONE (15:11)
[2022-05-11 17:38] VITALS: TEMP 98
[2022-05-11 17:40] VITALS: O2SAT 100
[2022-05-11 17:41] VITALS: BP 117/76
== END 2022-05-11 17:13 | disposition short-term general hospital (02) ==
LOC: ER 09:45
DX: K85.10 Biliary acute pancreatitis without necrosis or infection (principal); K80.80 Other cholelithiasis without obstruction; Z20.822 Contact with and (suspected) exposure to COVID-19; Z91.013 Allergy to seafood
CPT/HCPCS: 85025; 36415; 83690; 80053; 71046; 76705; 87811; Q0162; J2543; J3010; J7030 ×2; 99285

== ENCOUNTER 2023-06-14 16:55 | Emergency (ER) | payer BC ==
--- NOTE | 2023-06-14 18:12 | RAD REPORT ---
EXAM DESCRIPTION: RAD - Foot Left 3 View - 06/14/2023 5:52 pm CLINICAL HISTORY: Left Foot pain FINDINGS: No fracture or dislocation is seen. Large plantar calcaneal spur. No additional significant or joint abnormality visualized
--- NOTE | 2023-06-14 18:43 | ER ---
Nurse's Notes [facility] Name: Eliot Avendaño Age: 38 yrs Sex: Male : 1985 Arrival Date: 06/14/2023 Time: 16:55 Bed 14 Private MD: Albaro Gomez Diagnosis: Pain in left foot Presentation: 06/13 17:06 Chief complaint: Patient states: he is having left foot pain that he currently rates a ap3 10. Coronavirus screen: At this time, the client does not indicate any symptoms associated with coronavirus-19. Ebola Screen: No symptoms or risks identified at this time. Initial Sepsis Screen: Does the patient meet any 2 criteria? No. Patient's initial sepsis screen is negative. Does the patient have a suspected source of infection? No. Patient's initial sepsis screen is negative. Risk Assessment: Do you want to hurt yourself or someone else? Patient reports no desire to harm self or others. Onset of symptoms is unknown. 17:06 Method Of Arrival: Ambulatory ap3 17:06 Acuity: CAIO 4 ap3 Triage Assessment: 17:08 General: Appears in no apparent distress. Behavior is calm, cooperative, appropriate ap3 for age. Pain: Complains of pain in left foot. Neuro: Level of Consciousness is awake, alert, obeys commands, Oriented to person, place, time, situation. Cardiovascular: Patient's skin is warm and dry. Respiratory: Airway is patent Respiratory effort is even, unlabored. Musculoskeletal: Reports pain in left foot. Historical: - Allergies: 17:08 iodine-shrimp; ap3 - PMHx: 17:08 Asthma; ap3 - PSHx: 17:08 Ankle; Appendectomy; Appendectomy; Bladder; knee; ap3 - Immunization history:: Client reports having NOT received the Covid vaccine. - Infectious Disease History:: Denies. - Social history:: Smoking status: Reported history of juuling and/or vaping. Screenin:28 [facility] ED Fall Risk Assessment (Adult) History of falling in the last 3 months, me1 including since admission No falls in past 3 months (0 pts) Confusion or Disorientation No (0 pts) Intoxicated or Sedated Impaired Gait Yes (1 pt) Mobility Assist Device Used No (0 pt) Altered Elimination No (0 pt) Score/Fall Risk Level 0 - 2 = Low Risk Maintained a safe environment, Provided non-skid footwear, Hourly rounding (assess needs \T\ fall precautionary measures) done. Abuse screen: Denies threats or abuse. Nutritional screening: No deficits noted. Tuberculosis screening: No symptoms or risk factors identified. Assessment: 17:28 General: Appears uncomfortable, obese, well developed, well nourished, Behavior is me1 calm, cooperative, appropriate for age. Pain: Complains of pain in left foot Pain does not radiate. Pain currently is 3 out of 10 on a pain scale. Quality of pain is described as sharp, stinging, Is continuous. Neuro: Level of Consciousness is awake, alert, obeys commands, Oriented to person, place, time, situation, Appropriate for age. Cardiovascular: Capillary refill < 3 seconds Patient's skin is warm and dry. Respiratory: Airway is patent Respiratory effort is even, unlabored, Respiratory pattern is regular, symmetrical. GI: No signs and/or symptoms were reported involving the gastrointestinal system. : No signs and/or symptoms were reported regarding the genitourinary system. EENT: No signs and/or symptoms were reported regarding the EENT system. Derm: Skin is intact, is healthy with good turgor, Skin is pink, warm \T\ dry. Musculoskeletal: Reports pain in left foot. Vital Signs: 17:06 BP 156 / 91; Pulse 93; Resp 18; Temp 97.7; Pulse Ox 100% ; Weight 164.65 kg; Height 5 ap3 ft. 11 in. ; Pain 3/10; 18:00 BP 134 / 66; Pulse 69; Resp 16; Pulse Ox 100% on R/A; me1 18:30 BP 123 / 99; Pulse 62; Resp 16; Pulse Ox 100% on R/A; me1 17:06 Body Mass Index 50.63 (164.65 kg, 180.34 cm) ap3 17:06 Pain Scale: Adult ap3 ED Course: 16:56 Patient arrived in ED. rg4 16:57 Albaro Gomez MD is Private Physician. rg4 16:57 Olivia Santiago FNP-C is [facility]. kb 16:57 Vishnu Fleming MD is Attending Physician. kb 17:04 Bekah Wild, YESENIA is Primary Nurse. me1 17:08 Triage completed. ap3 17:09 Arm band placed on right wrist. ap3 17:28 Patient has correct armband on for positive identification. Bed in low position. Call me1 light in reach. Side rails up X 1. Provided Education on: POC. Verbalized understanding. . 17:28 No provider procedures requiring assistance completed. Patient did not have IV access me1 during this emergency room visit. 17:54 Foot Left 3 View XRAY In Process Unspecified. EDMS Administered Medications: No medications were administered Medication: 17:28 VIS not applicable for this client. me1 Outcome: 18:42 Discharge ordered by . kevin 18:50 Discharged to home ambulatory, me1 18:50 Condition: stable 18:50 Discharge instructions given to patient, Instructed on discharge instructions, follow up and referral plans. Demonstrated understanding of instructions, follow-up care, 18:50 Patient left the ED. me1 Signatures: Dispatcher [employer] EDMS Olivia Santiago, DERREK NORTON-Corry Connor rg4 Olga Diaz RN RN ap3 Bekah Wild, YESENIA RN me1 Corrections: (The following items were deleted from the chart) 17:10 17:06 Chief complaint: Patient states: he is having left foot pain that he currently me1 rates a 04/30 ap3
--- NOTE | 2023-06-14 18:43 | EDPHYS ---
Physician Documentation [facility] Name: Eliot Avendaño Age: 38 yrs Sex: Male : 1985 Arrival Date: 06/14/2023 Time: 16:55 Bed 14 Private MD: Albaro Gomez ED Physician Vishnu Fleming HPI: 06/13 18:02 This 38 yrs old Male presents to ER via Ambulatory with complaints of Ankle Injury. kb 18:02 Pt is a 38 year old male who presents for pain to lateral aspect of left foot for 2 kb weeks that is worse with movement. States he is on his feet for 12 hours a day, but doesn't remember any injury. . Historical: - Allergies: 17:08 iodine-shrimp; ap3 - PMHx: 17:08 Asthma; ap3 - PSHx: 17:08 Ankle; Appendectomy; Appendectomy; Bladder; knee; ap3 - Immunization history:: Client reports having NOT received the Covid vaccine. - Infectious Disease History:: Denies. - Social history:: Smoking status: Reported history of juuling and/or vaping. ROS: 18:02 Constitutional: As per HPI kb Exam: 18:02 Constitutional: This is a well developed, well nourished patient who is awake, alert, kb and in no acute distress. Head/Face: Normocephalic, atraumatic. ENT: Moist Mucous membranes Cardiovascular: Regular rate Respiratory: Respirations even and unlabored. No increased work of breathing. Talking in full sentences Skin: Warm, dry with normal turgor. Normal color. Neuro: Awake and alert, GCS 15, oriented to person, place, time, and situation. Moves all extremities. Normal gait. 18:02 Musculoskeletal/extremity: Extremities: grossly normal except: noted in the lateral side of left foot: pain, tenderness, ROM: intact in all extremities, Circulation is intact in all extremities. Sensation intact. Weight bearing: able to fully bear weight, Vital Signs: 17:06 BP 156 / 91; Pulse 93; Resp 18; Temp 97.7; Pulse Ox 100% ; Weight 164.65 kg; Height 5 ap3 ft. 11 in. ; Pain 3/10; 18:00 BP 134 / 66; Pulse 69; Resp 16; Pulse Ox 100% on R/A; me1 18:30 BP 123 / 99; Pulse 62; Resp 16; Pulse Ox 100% on R/A; me1 17:06 Body Mass Index 50.63 (164.65 kg, 180.34 cm) ap3 17:06 Pain Scale: Adult ap3 MDM: 16:57 Patient medically screened. kb 18:03 Data reviewed: vital signs, nurses notes. kb 18:40 Differential diagnosis: fracture, sprain. Counseling: I had a detailed discussion with kb the patient and/or guardian regarding the historical points, exam findings, and any diagnostic results supporting the discharge/admit diagnosis, radiology results, the need for outpatient follow up, a orthopedic surgeon, to return to the emergency department if symptoms worsen or persist or if there are any questions or concerns that arise at home. ED course: Pt states he came in hoping to get a MRI. Educated pt on follow up for MRI, but we cannot perform nonemergent MRIs in the ED. . 06/13 17:04 Order name: Foot Left 3 View XRAY; Complete Time: 18:20 kb Administered Medications: No medications were administered Disposition: 19:53 Co-signature as Attending Physician, Vishnu Fleming MD I reviewed the patient's care rn provided by the Advanced Practice Provider and agree with the diagnosis and treatment plan. Disposition Summary: 06/14/23 18:42 Discharge Ordered Notes: Location: Home Condition: Stable kb Diagnosis - Pain in left foot kb Followup: kb - With: Emergency Department - When: As needed - Reason: Worsening of condition Followup: kb - With: Private Physician - When: 2 - 3 days - Reason: Recheck today's complaints, Continuance of care, Re-evaluation by your physician Discharge Instructions: - Discharge Summary Sheet kb - Foot Sprain kb - Foot Pain kb Forms: - Medication Reconciliation Form kb - Antibiotic Education kb - Prescription Opioid Use kb - Patient Portal Instructions kb - Leadership Thank You Letter kb Signatures: Dispatcher [employer] Olivia Cueva, CALL CENTER RECEPTIONIST-C CALL CENTER RECEPTIONIST-Vishnu Martinez MD MD rn Prokisch, Amanda, RN RN ap3
[2023-06-14 19:29] VITALS: BP 123/99; TEMP 97.7; O2SAT 100
== END 2023-06-14 18:50 | disposition home or self-care (01) ==
LOC: ER 16:55
DX: M79.672 Pain in left foot (principal); Z91.013 Allergy to seafood
CPT/HCPCS: 99283